=== PATIENT | male | born 1955 | race Caucasian/White ===

== ENCOUNTER 2019-10-03 09:28 | Emergency (ER) | payer MEDICARE ==
[~2019-10-03] VITALS: Ht 175.3 cm; Wt 87.4 kg
--- NOTE | 2019-10-03 09:57 | NUR ---
assumed care of pt. c/o L groin pain x1 day. pt denies any recent lifting, denies long car rides. no recent injuries. ambulatory with pain. no hematuria. denies swelling. CMS of LLE intact
--- NOTE | 2019-10-03 09:59 | NUR ---
pt reports to med student at bedside that he had a workup for CP last week
--- NOTE | 2019-10-03 10:24 | NUR ---
pt resting no orders recieved
[2019-10-03] MEDS ORDERED: SODIUM CHLORIDE FLUSH 10ML SYR IVF ONE (10:30)
--- NOTE | 2019-10-03 10:36 | NUR ---
urine sample has been collected. lab at bedside to draw
[2019-10-03 10:51] LABS: MICROSCOPIC NOT IND
[2019-10-03 10:52] LABS: CULTURE INDICATED? NO
[2019-10-03 10:52] LABS: BASOPHILS # (AUTO) 0.02 x10^3/uL (0-0.1); BASOPHILS % (AUTO) 0 % (0-1); EOSINOPHILS # (AUTO) 0.11 x10^3/uL (0-0.4); EOSINOPHILS % (AUTO) 1 % (1-7); LYMPHOCYTES # (AUTO) 0.76 x10^3/uL (1-3.4); LYMPHOCYTES % (AUTO) 9 % (22-44); MD NO; MEAN CORPUSCULAR HEMOGLOBIN 30.9 pg (27.5-34.5); MEAN CORPUSCULAR HGB CONC 33.7 g/dL (33.2-36.2); MEAN CORPUSCULAR VOLUME 91.6 fL (81-97); MEAN PLATELET VOLUME 8.9 fL (7.4-10.4); MONOCYTES # (AUTO) 0.52 x10^3/uL (0.2-0.8); MONOCYTES % (AUTO) 6 % (2-9); NEUTROPHILS # (AUTO) 6.85 x10^3/uL (1.8-6.8); NEUTROPHILS % (AUTO) 83 % (42-75); PLATELET COUNT 175 x10^3/uL (130-400); RED BLOOD COUNT 4.78 x10^6/uL (4.38-5.82); RED CELL DISTRIBUTION WIDTH 12.6 % (9.4-14.8)
[2019-10-03 11:02] LABS: ALANINE AMINOTRANSFERASE 67 U/L (12-78); CALCIUM 8.9 mg/dL (8.5-10.1); CREATININE 1.16 mg/dL (0.7-1.3)
[2019-10-03 11:04] LABS: ALKALINE PHOSPHATASE 179 U/L (45-117); BILIRUBIN,TOTAL 0.8 mg/dL (0.2-1.0); TOTAL PROTEIN 7.8 g/dL (6.4-8.2)
--- NOTE | 2019-10-03 11:11 | NUR ---
report to Olya BRASWELL
[2019-10-03 11:14] LABS: ANION GAP 6 mmol/L (5-15); CHLORIDE 113 mmol/L (98-107)
--- NOTE | 2019-10-03 11:50 | NUR ---
Note [email or web address] in EDM - 10/03/19 at [address] GIULIANA VILLALPANDO, DISCUSSING POC W/ PT AND HIS SON. PT TO BE ADMITTED. PT A&OX4, RESP EVEN & UNLABORED, SPEECH CLEAR. PT STATES HE LEFT HIS DENTURES AT HOME. PT USES A CANE (CANE PRESENT IN ROOM).
--- NOTE | 2019-10-03 12:05 | NUR ---
PT A&OX4, RESP EVEN & UNLABORED, SPEECH CLEAR, SKIN WNL. C/O LT GROIN PAIN, STARTED YESTERDAY MORNING. DENIES TRAUMA, HX HERNIA, URINARY SX. NO PAIN MEDS TAKEN. DENIES N/V. LAST BM: TODAY. Addendum: 10/03/19 at 1209 by LUCERO LAST ORAL INTAKE: COFFEE 0800 TODAY, DINNER 1999 LAST NOC.
[2019-10-03] MEDS ORDERED: CHOLESTEROL (12:08)
[2019-10-03] MEDS ORDERED: ASPI81TA45 PO (12:08)
--- NOTE | 2019-10-03 12:12 | NUR ---
PT AWARE OF PENDING CT. REFUSED PAIN MEDICINE, AT THIS TIME.
--- NOTE | 2019-10-03 12:30 | NUR ---
TO CT PER FRITZ
[2019-10-03] MEDS ORDERED: OMNIPAQUE 350 MG/ML, 100ML BOTTLE ONE (12:46)
[2019-10-03 14:15] VITALS: BP 122/86
== END 2019-10-03 14:17 | disposition home or self-care (01) ==
LOC: ED 11:49
DX: S39.011A Strain of muscle, fascia and tendon of abdomen, initial encounter (principal); E78.5 Hyperlipidemia, unspecified; Z88.5 Allergy status to narcotic agent; X58.XXXA Exposure to other specified factors, initial encounter; Y93.89 Activity, other specified; Y92.89 Other specified places as the place of occurrence of the external cause; Y99.8 Other external cause status
CPT/HCPCS: 36415; 74177; 80053; 81003; 83605; 83690; 85025; 99284; Q9967